=== PATIENT | female | born 1990 | race African-American/Black ===

== ENCOUNTER 2019-11-08 11:55 | Emergency (ER) | payer OTHER, SELFPAY ==
[2019-11-08 12:08] VITALS: BP 124/82; PULSE 104; RESP 18; TEMP 36.8; O2SAT 100
[2019-11-08 12:14] LABS: Basophils Percent Auto 0.2 % (0.2-1.2); Eosinophils Absolute Auto 0.1 K/mm3 (0-0.3); Eosinophils Percent Auto 1.8 % (0-4.4); Hematocrit 27.1 % (37.0-47.0); Hemoglobin 8.2 g/dL (12.0-15.0); Immature Granulocyte Absolute 0.01 K/mm3 (0.00-0.031); Immature Granulocyte Percent A 0.2 % (0-0.5); Lymphocytes Absolute Auto 1.44 K/mm3 (0.9-3.2); Lymphocytes Percent Auto 25.6 % (18.3-44.2); Mean Corpuscular HGB Conc 30.3 g/dl (32-36); Mean Corpuscular Hemoglobin 23.2 pg (26-34); Mean Corpuscular Volume 76.6 fl (80-100); Mean Platelet Volume 9.9 fl (7.4-10.4); Monocytes Absolute Auto 0.9 K/mm3 (0.1-0.6); Monocytes Percent Auto 15.5 % (2.6-8.5); Neutrophils Absolute Auto 3.2 K/mm3 (1.3-6.7); Neutrophils Percent Auto 56.7 % (45.5-73.1); Platelet Count Result 236 k/mm3 (150-375); Red Blood Count 3.54 M/mm3 (4.2-5.4); Red Cell Distribution Width 17.5 % (11.5-14.5); White Blood Count 5.6 K/mm3 (4.5-10.0)
--- NOTE | 2019-11-08 12:26 | ED.ABDPAIN ---
HPI - Abdominal Pain General Chief Complaint: M[employer]OSING [employer] Stated Complaint: abd pain Time Seen by Provider: 11/08/19 12:02 Source: patient Mode of arrival: ambulatory Limitations: no limitations History of Present Illness HPI narrative: Patient is a 29-year-old female who presents to emergency department for evaluation of vaginal bleeding that has been present patient currently on her menses and has been for the last week noting that she has been bleeding more than usual with some cramping in the pelvis noted that today she passed a clot. Patient denies fever chills nausea vomiting or other complaints has not taken anything for her symptoms and presents per private vehicle in no distress Related Data Allergies Allergy/AdvReac Type Severity Reaction Status Date / Time Penicillins AdvReac Unknown Nausea and Verified 10/14/16 18:34 Vomiting Review of Systems Review of Systems: All systems reviewed & are unremarkable except as noted in HPI and below PMFSH Social History Social History (Updated 11/08/19 @ 12:27 by Alec Solares PA-C) Smoking status: Never smoker Gender identity (if verbalized by the patient): Female Exam Narrative: Exam Narrative: GENERAL: Well-appearing, well-nourished, and in no acute distress. HEAD: Normocephalic, atraumatic. EYES: PERRLA and EOMI. ENT: Nares clear, no rhinorrhea or epistaxis. Mucous membranes moist. CHEST: Clear to auscultation. No respiratory distress. No wheezes rales or rhonchi HEART: Regular rate and rhythm. No murmur heard. Normal peripheral pulses. ABDOMEN: Soft, nontender, nondistended EXTREMITIES: Normal range of motion. No edema. SKIN: Warm, dry, no rash. NEURO: No focal deficits. Alert and oriented x3. PSYCH: Normal mood and affect. Course Course Emergency Course: Patient in the room aware of case findings treatment plan and diagnosis agreeing to follow-up as directed or to return if symptoms worsen or concerns Consultations Consultation #1: Discussed case with gynecology who is agreed to follow the patient in clinic with no further recommendations at this time Date: 11/08/19 Vital Signs Vital signs: Vital Signs Temperature 98.2 F 11/08/19 12:08 Pulse Rate 104 H 11/08/19 12:08 Respiratory Rate 18 11/08/19 12:08 Blood Pressure 124/82 11/08/19 12:08 Pulse Oximetry 100 11/08/19 12:08 Temperature 98.2 F 11/08/19 12:08 Pulse Rate 89 11/08/19 13:59 Respiratory Rate 18 11/08/19 12:08 Blood Pressure 108/76 11/08/19 13:59 Pulse Oximetry 100 11/08/19 12:08 MDM - Abdominal Pain MDM Narrative Medical decision making narrative: Patient in the room aware of case findings treatment plan and diagnosis agreeing to follow-up as directed or to return if symptoms worsen or concerns Patient hemodynamically stable afebrile nontoxic-appearing with anemia her pelvic exam does not show any active bleeding advised to follow with gynecology aware of discussion with gynecology Lab Data Result diagrams: 11/08/19 12:10 11/08/19 12:10 Labs: Lab Results 11/08/19 11/08/19 11/08/19 Range/Units 12:10 12:10 12:44 WBC 5.6 (4.5-10.0) K/mm3 RBC 3.54 L (4.2-5.4) M/mm3 Hgb 8.2 L (12.0-15.0) g/dL Hct 27.1 L (37.0-47.0) % MCV 76.6 L (80-100) fl MCH 23.2 L (26-34) pg MCHC 30.3 L (32-36) g/dl RDW 17.5 H (11.5-14.5) % Plt Count 236 (150-375) k/mm3 MPV 9.9 (7.4-10.4) fl Immature Gran % (Auto) 0.2 (0-0.5) % Neut % (Auto) 56.7 (45.5-73.1) % Lymph % (Auto) 25.6 (18.3-44.2) % [place] % (Auto) 15.5 H (2.6-8.5) % Eos % (Auto) 1.8 (0-4.4) % Baso % (Auto) 0.2 (0.2-1.2) % Lymph # (Auto) 1.44 (0.9-3.2) K/mm3 [place] # (Auto) 0.9 H (0.1-0.6) K/mm3 Eos # (Auto) 0.1 (0-0.3) K/mm3 Baso # (Auto) 0.0 (0.0-0.1) K/mm3 Abs Immat Gran (auto) 0.01 (0.00-0.031) K/mm3 Absolute Neuts (auto) 3.2 (1.3-6.7) K/mm3 Absolute Nucleated RBC 0.0 (0.0-0.01
[2019-11-08 12:28] LABS: Alanine Aminotransferase 36 U/L (4-35); Alkaline Phosphatase 52 U/L (38-126); Aspartate Amino Transferase 39 U/L (14-36); Bilirubin,Total 0.2 mg/dL (0.2-1.3); Blood Urea Nitrogen 12 mg/dL (7-17); Calcium 8.7 mg/dL (8.4-10.2); Carbon Dioxide 23 mmol/L (22-30); Chloride 110 mmol/L (98-107); Estimated CRCL calculation 127 ml/min; Estimated Glomerular Filt Rate > 60; Glucose 97 mg/dL (65-105); Lipase 126 U/L (23-300); Sodium 137 mmol/L (137-145)
[2019-11-08 12:57] LABS: Add Urine Microscopic? YES; Appearance Urine Cloudy (Clear); Bilirubin Urine Negative (Negative); Blood Urine 3+ (Negative); Color Urine Yellow (Yellow); Glucose Urine UA Negative (Negative); Ketones Urine Negative (Negative); Leukocyte Esterase Ur Negative LEU/UL (Negative); Mucus Urine Heavy /lpf; Nitrate Urine Negative (Negative); Protein Urine 1+ mg/dL (Negative); RBC Urine >75 /hpf (0-2); Specific Grav Ur 1.021 (1.001-1.035); Squamous Epithelial Cell Urine Occasional /hpf (Few); Urobilinogen Urine Negative mg/dL (<2.0)
[2019-11-08 13:56] VITALS: BP 100/61; PULSE 73
[2019-11-08 13:58] VITALS: BP 113/73; PULSE 78
[2019-11-08 13:59] VITALS: BP 108/76; PULSE 89
== END 2019-11-08 15:15 | disposition home or self-care (01) ==
PROVIDERS: Emergency Medicine Emergency Medical Services; Emergency Provider Emergency Medicine
DX: D64.9 Anemia, unspecified (principal); N93.9 Abnormal uterine and vaginal bleeding, unspecified
CPT/HCPCS: 36415; 80053; 81001; 81025; 83690; 85025; 99284

== ENCOUNTER 2023-10-21 10:54 | Outpatient (CLI) | payer OTHER, SELFPAY ==
--- NOTE | ~2023-10-21 | MMUS_ITS ---
EXAMINATION: MM diagnostic irene BI w gil, US breast BI complete HISTORY: Palpable bilateral breast masses TECHNIQUE: Additional 3-D tomosynthesis images of the breasts were performed and synthetic 2-D images were generated. CAD analysis was submitted and interpreted. High resolution bilateral complete breas t ultrasound was performed. COMPARISON: None BREAST PARENCHYMAL COMPOSITION: Dense: The breasts are extremely dense, which lowers the sensitivity of mammography. FINDINGS: MAMMOGRAPHIC FINDINGS: There are no suspicious masses, calcifications or architectural distortion in either breast to sugges t malignancy. ULTRASOUND: Complete bilateral US of all 4 quadrants of the breasts and retroareolar region was reviewed. Right breast: At 3:00, 2 cm from the nipple there is an oval circumscribed hypoechoic mass with paral lel orientation, circumscribed margins, no significant posterior features and no internal vascularity measuring 6 mm. At 6:00, 5 cm from the nipple there is an oval hypodense mass with parallel orientat ion measuring 5 mm without internal vascularity or posterior features. At 7:00, 5 cm from the nipple, there is an oval hypoechoic mass measuring 9 mm with internal vascularity. There is parallel orienta tion, no significant posterior features. At 8:00, 6 cm from the nipple there is an oval hypoechoic ma ss measuring 1.4 cm without internal vascularity or significant posterior features. At 9:00, 4 cm fro m the nipple there is an oval circumscribed hypoechoic mass measuring 9 mm without significant ehs engineer ior features or internal vascularity. At 10:00, 2 cm from the nipple there is an oval hypoechoic mass measuring 12 mm with parallel orientation, no significant posterior features or internal vascularity . Left breast: At 3:00 there is an oval hypoechoic mass measuring 7 mm without posterior features, para llel orientation and no internal vascularity. At 5:00, 5 cm from the nipple there is an oval hypoecho ic mass measuring 9 mm without internal vascularity or posterior features. At 7:00, 6 cm from the nipple there is an oval hypoechoic mass measuring 6 mm without internal vascul arity or posterior features, parallel orientation.. IMPRESSION: 1. Multiple bilateral breast masses which are likely benign given their sonographic appearance and mu ltiplicity. 2. Recommend 6 month follow-up bilateral breast ultrasound. BI-RADS category 3, probably benign findings. Reviewed, dictated and finalized at location A. TER IMPRESSION: 1. Multiple bilateral breast masses which are likely benign given their sonogra phic appearance and multiplicity. 2. Recommend 6 month follow-up bilateral breast ultrasound. BI-RADS category 3, probably benign findings.
== END 2023-10-21 10:55 | disposition home or self-care (01) ==
PROVIDERS: Visit Provider Nurse Practitioner
DX: N63.0 Unspecified lump in unspecified breast (principal); R92.8 Other abnormal and inconclusive findings on diagnostic imaging of breast
CPT/HCPCS: 76641; 77062; 77066; G0279